=== PATIENT | male | born 1985 | race Caucasian/White ===

== ENCOUNTER 2024-08-02 06:31 | Day surgery (SDC) | payer BC, OTHER ==
[~2024-08-02 06:31] MED LIST: Sodium Chloride 0.9% 10 ML Syringe FLUSH PRN
[2024-08-02] MEDS ORDERED: Propofol 200 MG/20 ML SDV IV ONE (06:32)
[2024-08-02] MEDS ORDERED: Midazolam 1 MG/ML 2 ML SDV IV ONE (06:32)
[2024-08-02] MEDS ORDERED: Lidocaine 2% 100 MG/5 ML Syringe IVPUSH ONE (06:32)
[2024-08-02] MEDS ORDERED: Ketamine 500 mg/10 ML MDV IV ONE (06:32)
[2024-08-02] MEDS: Lactated Ringers 1,000 ML IV SCH (07:35)
[2024-08-02] MEDS: Simethicone Drops 40 MG/0.6 ML 30 ML Bottle ONE (08:59)
[2024-08-04 22:44] LABS: LACTOFERRIN,FECAL BY ELISA Negative (Negative)
[2024-08-05 14:12] LABS: ADENOVIRUS 40/41 PCR Not Detected; ASTROVIRUS PCR Not Detected; CAMPYLOBACTER PCR Not Detected; CRYPTOSPORIDIUM PCR Not Detected; CYCLOSPORA CAYETANENSIS PCR Not Detected; ENTAMOEBA HISTOLYTICA PCR Not Detected; ENTEROAGGREGATIVE E. COLI PCR Not Detected; ENTEROPATHOGENIC E. COLI PCR Not Detected; ENTEROTOXIGENIC E. COLI PCR Not Detected; GIARDIA LAMBLIA PCR Not Detected; NOROVIRUS GI/GII PCR Not Detected; PLESIOMONAS SHIGELLOIDES PCR Not Detected; ROTAVIRUS A PCR Not Detected; SALMONELLA PCR Not Detected; SAPOVIRUS PCR Not Detected; SHIG/ENTEROINVASIVE E COLI PCR Not Detected; SHIGA TOXIN-PRODUC E. COLI PCR Not Detected; VIBRIO CHOLERAE PCR Not Detected; VIBRIO PCR Not Detected; YERSINIA ENTEROCOLITICA PCR Not Detected
== END 2024-08-02 10:30 | disposition home or self-care (01) ==
LOC: FB.SDS 06:31
PROVIDERS: ATTEND Surgery
DX: D12.8 Benign neoplasm of rectum (principal); K63.5 Polyp of colon; K57.30 Diverticulosis of large intestine without perforation or abscess without bleeding; I10 Essential (primary) hypertension
CPT/HCPCS: 00811; 83630; 87507; 88305; A9270-GY; J2250; J2704; J3490; J7120